=== PATIENT | female | born 1980 | race Caucasian/White ===

== ENCOUNTER 2017-09-09 10:51 | Outpatient (CLI) | payer OTHER ==
[~2017-09-09 10:51] MED LIST: KEFLEX500 MG PO; ULTRACET PO; URIN D.S. TABLE1 TAB PO
== END 2017-09-09 17:00 | disposition home or self-care (01) ==
LOC: SONOGRAMA 10:51
DX: N20.0 Calculus of kidney (principal)

== ENCOUNTER 2017-09-09 11:45 | Outpatient (CLI) | payer OTHER | END 2017-09-09 17:00 | disposition home or self-care (01) | LOC: RAD 11:45 | DX: N20.0 Calculus of kidney (principal) ==

== ENCOUNTER 2017-09-11 07:10 | Outpatient (CLI) | payer OTHER ==
[2017-09-12] MEDS ORDERED: TAMS0.4C (10:26)
[2017-09-12] MEDS ORDERED: ULTRACET (10:27)
[2017-09-12] MEDS ORDERED: CIPRO500 MG PO (15:06)
[2017-09-12] MEDS ORDERED: ULTRACET PO (15:06)
[2017-09-12] MEDS ORDERED: UROCIT-K10 MEQ PO (15:08)
== END 2017-09-11 14:34 | disposition home or self-care (01) ==
LOC: TOM 07:10
DX: N20.0 Calculus of kidney (principal)

== ENCOUNTER 2017-09-12 10:02 | Day surgery (SDC) | payer OTHER ==
[~2017-09-12] VITALS: Ht 160 cm; Wt 65.3 kg
[2017-09-12] MEDS ORDERED: TAMS0.4C (10:26)
[2017-09-12] MEDS ORDERED: ULTRACET (10:27)
[2017-09-12] MEDS ORDERED: ULTRACET PO (15:06)
[2017-09-12] MEDS ORDERED: CIPRO500 MG PO (15:06)
[2017-09-12] MEDS ORDERED: UROCIT-K10 MEQ PO (15:08)
== END 2017-09-12 17:30 | disposition home or self-care (01) ==
LOC: ER 10:02 → CIR.AMB 13:08
DX: N13.2 Hydronephrosis with renal and ureteral calculous obstruction (principal); N13.1 Hydronephrosis with ureteral stricture, not elsewhere classified

== ENCOUNTER 2017-11-05 08:14 | Outpatient (CLI) | payer OTHER ==
[~2017-11-05 08:14] MED LIST changes: +CIPRO500 MG PO; +TAMS0.4C; +ULTRACET; +UROCIT-K10 MEQ PO
== END 2017-11-05 15:44 | disposition home or self-care (01) ==
LOC: RAD 08:14
DX: N20.1 Calculus of ureter (principal)

== ENCOUNTER 2018-10-17 09:10 | Outpatient (CLI) | payer OTHER | END 2018-10-17 09:22 | disposition home or self-care (01) | LOC: SONOGRAMA 09:10 | DX: N20.0 Calculus of kidney (principal) ==

== ENCOUNTER → 2019-05-01 | Outpatient (CLI) | payer OTHER | END | disposition home or self-care (01) | LOC: MAMO-SONO 07:45 → SONOGRAMA 08:16 | DX: N20.0 Calculus of kidney (principal); R31.1 Benign essential microscopic hematuria ==

== ENCOUNTER 2019-08-23 13:12 | Outpatient (CLI) | payer OTHER | END 2019-08-23 13:19 | disposition home or self-care (01) | LOC: SONOGRAMA 13:12 | DX: N60.11 Diffuse cystic mastopathy of right breast (principal); N60.12 Diffuse cystic mastopathy of left breast; N63.21 Unspecified lump in the left breast, upper outer quadrant ==